=== PATIENT | male | born 1955 | race Caucasian/White ===

== ENCOUNTER 2016-08-04 18:19 | Inpatient (IN) | payer BC ==
[2016-08-04] MEDS ORDERED: Sodium Chloride 0.9% 1,000 ML IV ONE (19:31)
[2016-08-04] MEDS ORDERED: Ketorolac 30 MG/ML SDV IVPUSH ONE (19:33)
[2016-08-04] MEDS ORDERED: Acetaminophen 650 MG Supp RECTAL ONE (19:34)
[2016-08-04] MEDS ORDERED: LORazepam 2 MG/ML MDV IVPUSH ONE (19:34)
--- NOTE | 2016-08-04 19:35 | EDM.PDOC ---
ED HPI GENERAL MEDICAL PROBLEM - General Chief Complaint: Abdominal Pain Stated Complaint: UNK Time Seen by Provider: 08/04/16 19:05 Source of Information: Reports: Patient History Limitations: Reports: No Limitations - History of Present Illness INITIAL COMMENTS - FREE TEXT/NARRATIVE: HISTORY AND PHYSICAL: History of present illness: [61-year-old male with borderline diabetes, obesity, prior abdominal history of bilateral inguinal hernia repairs now presents emergency department complaining of pain around his bellybutton. Patient evolved a dull ache in the area of his bellybutton. He also perceived that he had fevers today. No vomiting or diarrhea. Pain is crampy and intermittent now improved. No chest pain or shortness of breath. No productive cough. Normal bowel and bladder habits.] Review of systems: As per history of present illness and below otherwise all systems reviewed and negative. Past medical history: As per history of present illness and as reviewed below otherwise noncontributory. Surgical history: As per history of present illness and as reviewed below otherwise noncontributory. Social history: No reported history of drug or alcohol abuse. Family history: As per history of present illness and as reviewed below otherwise noncontributory. Physical exam: Patient alert communicative and cooperative however he is mildly anxious. HEENT: Atraumatic, normocephalic, pupils reactive, negative for conjunctival pallor or scleral icterus, mucous membranes moist, throat clear, neck supple, nontender, trachea midline. Lungs: Clear to auscultation, breath sounds equal bilaterally, chest nontender. Heart: S1S2, regular, negative for clicks, rubs, or JVD. Abdomen: Soft, nondistended, mild tenderness in the umbilical distribution. Patient has 2 cm umbilical hernia which was reducible with digital manipulation on M.D. exam. No skin changes erythema warmth or crepitus. No CVA tenderness and otherwise no focal tenderness the abdomen or pelvis. Negative for masses or hepatosplenomegaly. Negative for costovertebral tenderness. Pelvis: Stable nontender. Genitourinary: Deferred. Rectal: Deferred. Extremities: Atraumatic, negative for cords or calf pain. Neurovascular unremarkable. Neuro: Awake, alert, oriented. Cranial nerves II through XII unremarkable. Cerebellum unremarkable. Motor and sensory unremarkable throughout. Exam nonfocal. Diagnostics: [CT abdomen and pelvis pending as well as full laboratory workup] Therapeutics: [Toradol given for pain and Ativan administered for anxiety lysis] Impression: [Abdominal pain Anxiety] Plan: [Patient with abdominal pain. No prior history of chronic abdominal problems. Labs with elevated white blood cell count. CT returns with radiographic evidence of diverticulitis. No abscess or perforation. Case discussed with Dr. Abdi Bonner hospitalist operations research manager who is aware history and findings and agrees with inpatient admission to his service. Blood cultures will be drawn lactic acid pending and Cipro and Flagyl administered. Vital signs stable Definitive disposition and diagnosis as appropriate pending reevaluation and review of above. Umbilical pain Pain Score (Numeric/FACES): 6 - Related Data Allergies Allergy/AdvReac Type Severity Reaction Status Date / Time lisinopril Allergy Cannot Verified 06/28/13 08:44 Remember Home Meds: Home Meds Doxazosin [Doxazosin Mesylate] 4 mg PO DAILY 08/04/16 [History] Omeprazole Magnesium [Prilosec Otc] 20 mg PO DAILY 08/04/16 [History] Tadalafil [Cialis] 5 mg PO DAILY 08/04/16 [History] Valsartan/Hydrochlorothiazide [Diovan Hct 320-25 mg Tablet] 1 each PO DAILY [History] amLODIPine [Norvasc] 5 mg PO DAILY 08/04/16 [History] metFORMIN [Glucophage] 500 mg PO BIDMEALS 08/04/16 [History] Past Medical History Cardiovascular History: Reports: Hypertension Gastrointestinal History: Reports: GERD Endocrine/Metabolic History: Reports: Diabetes, Type II - Past Surgical History Cardiovascular Surgical History: Reports: None Social & Family History - Family History Family Medical History: Noncontributory - Tobacco Use Smoking Status *Q: Never Smoker - Caffeine Use Caffeine Use: Reports: Soda - Recreational Drug Use Recreational Drug Use: No ED ROS GENERAL - Review of Systems Review Of Systems: See Below (History of present illness) ED EXAM, GENERAL - Physical Exam Exam: See Below (History of present illness) Course - Vital Signs Last Recorded V/S: Last Vital Signs Temp 38.3 C H 08/04/16 20:50 Pulse 72 08/04/16 20:50 Resp 20 08/04/16 20:50 BP 115/58 L 08/04/16 20:50 Pulse Ox 93 L 08/04/16 20:50 - Orders/Labs/Meds Orders: Active Orders 24 hr Category Date Time Status Admission Status [Patient Status] [ADT] Stat ADT 08/04/16 21:49 Ordered Abdomen Pelvis w wo Cont [CT] Stat Exams 08/04/16 19:32 Taken CULTURE BLOOD [BC] Stat Lab 08/04/16 21:48 Ordered CULTURE BLOOD [BC] Stat Lab 08/04/16 21:48 Ordered LACTIC ACID,WHOLE BLOOD [BG] Stat Lab 08/04/16 21:49 Ordered Ciprofloxacin in D5W [Cipro in D5W 400 MG/200 ML] 400 Med 08/04/16 21:48 Active mg Premix Bag 1 bag IV NOW Sodium Chloride 0.9% @ 125 MLS/HR (1,000ml) Med 08/04/16 22:00 Ordered Sodium Chloride 0.9% [Normal Saline] 1,000 ml IV ASDIRECTED metroNIDAZOLE/Normal Saline [Flagyl 500 MG in NS 100 ML Med 08/04/16 21:46 Ordered ] 500 mg Premix Bag 1 bag IV ONETIME Blood Culture x2 Reflex Set [OM.PC] Stat Oth 08/04/16 21:48 Ordered Peripheral IV Insertion Adult [OM.PC] Stat Oth 08/04/16 19:31 Ordered Medication Orders Metronidazole 500 mg/ Premix 100 mls @ 100 mls/hr IV ONETIME ONE Stop: 08/04/16 22:45 Sodium Chloride (Normal Saline) 1,000 mls @ 125 mls/hr IV ASDIRECTED KARLA Ciprofloxacin/Dextrose 400 mg/ (Premix) 200 mls @ 200 mls/hr IV NOW STA Stop: 08/04/16 22:47 Labs: Laboratory Tests 08/04/16 08/04/16 08/04/16 Range/Units 19:20 19:55 19:55 WBC 14.30 H (4.0-11.0) K/uL RBC 4.74 (4.50-5.90) M/uL Hgb 14.2 (13.0-17.0) g/dL Hct 41.5 (38.0-50.0) % MCV 87.6 (80.0-98.0) fL MCH 30.0 (27.0-32.0) pg MCHC 34.2 (31.0-37.0) g/dL RDW Std Deviation 45.4 (28.0-62.0) fl RDW Coeff of Teo 14 (11.0-15.0) % Plt Count 169 (150-400) K/uL MPV 9.80 (7.40-12.00) fL Neut % (Auto) 88.9 H (48.0-80.0) % Lymph % (Auto) 6.3 L (16.0-40.0) % [place] % (Auto) 4.4 (0.0-15.0) % Eos % (Auto) 0.2 (0.0-7.0) % Baso % (Auto) 0.2 (0.0-1.5) % Neut # (Auto) 12.7 H (1.4-5.7) K/uL Lymph # (Auto) 0.9 (0.6-2.4) K/uL [place] # (Auto) 0.6 (0.0-0.8) K/uL Eos # (Auto) 0.0 (0.0-0.7) K/uL Baso # (Auto) 0.0 (0.0-0.1) K/uL Nucleated RBC % 0.0 /100WBC Nucleated RBCs # 0 K/uL Sodium 139 (136-146) mmol/L Potassium 3.7 (3.5-5.1) mmol/L Chloride 103 (98-110) mmol/L Carbon Dioxide 24 (21-31) mmol/L BUN 20 (6.0-23.0) mg/dL Creatinine 1.1 (0.6-1.5) mg/dL Est Cr Clr Drug Dosing 73.21 mL/min Estimated GFR (MDRD) > 60.0 ml/min Glucose 106 (60-110) mg/dL Calcium 9.1 (8.8-10.8) mg/dL Total Bilirubin 1.4 (0.1-1.5) mg/dL AST 20 (5-40) IU/L ALT 24 (8-54) IU/L Alkaline Phosphatase 55 (40-150) Total Protein 6.9 (6.0-8.0) g/dL Albumin 4.2 (3.4-4.8) g/dL Globulin 2.7 (2.0-3.5) g/dL Albumin/Globulin Ratio 1.6 (1.3-2.8) Lipase 13 (7-80) U/L Urine Color YELLOW Urine Appearance CLEAR Urine pH 5.5 (5.0-8.0) Ur Specific [place] 1.010 (1.001-1.035) Urine Protein NEGATIVE (NEGATIVE) mg/dL Urine Glucose (UA) NEGATIVE (NEGATIVE) mg/dL Urine Ketones TRACE H (NEGATIVE) mg/dL Urine Occult Blood NEGATIVE (NEGATIVE) Urine Nitrite NEGATIVE (NEGATIVE) Urine Bilirubin NEGATIVE (NEGATIVE) Urine Urobilinogen 0.2 (<2.0) EU/dL Ur Leukocyte Esterase NEGATIVE (NEGATIVE) Urine RBC 0-1 (0-2/HPF) Urine WBC 0-1 (0-5/HPF) Ur Epithelial Cells RARE (NONE-FEW) Urine Bacteria RARE (NEGATIVE) Meds: Medications Generic Name Dose Route Start Last Admin Trade Name Freq PRN Reason Stop Dose Admin Metronidazole 500 mg/ Premix 100 mls @ 100 mls/hr 08/04/16 21:46 IV 08/04/16 22:45 ONETIME ONE Sodium Chloride 1,000 mls @ 125 mls/hr 08/04/16 22:00 Normal Saline IV ASDIRECTED [facility] Ciprofloxacin/Dextrose 400 mg/ 200 mls @ 200 mls/hr 08/04/16 21:48 Premix IV 08/04/16 22:47 NOW STA Discontinued Medications Generic Name Dose Route Start Last Admin Trade Name Freq PRN Reason Stop Dose Admin Acetaminophen 650 mg 08/04/16 19:34 08/04/16 19:50 Tylenol RECTAL 08/04/16 19:35 650 mg NOW ONE Administration Sodium Chloride 1,000 mls @ 999 mls/hr 08/04/16 19:31 08/04/16 19:58 Normal Saline IV 08/04/16 20:31 999 mls/hr .Bolus ONE Administration Ketorolac Tromethamine 30 mg 08/04/16 19:33 08/04/16 20:02 Toradol IVPUSH 08/04/16 19:34 30 mg ONETIME ONE Administration Lorazepam 1 mg 08/04/16 19:34 08/04/16 20:00 Ativan IVPUSH 08/04/16 19:35 1 mg ONETIME ONE Administration Departure - Departure Time of Disposition: 21:54 Disposition: Admitted As Inpatient 64 Condition: Good Clinical Impression: Diverticulitis, Leukocytosis, Fever, SIRS (systemic inflammatory response syndrome), Sepsis - Discharge Information - My Orders Last 24 Hours: My Active Orders 08/04/16 19:31 Peripheral IV Insertion Adult [OM.PC] Stat 08/04/16 19:32 Abdomen Pelvis w wo Cont [CT] Stat 08/04/16 21:46 metroNIDAZOLE/Normal Saline [Flagyl 500 MG in NS 100 ML] 500 mg Premix Bag 1 bag IV ONETIME 08/04/16 21:48 CULTURE BLOOD [BC] Stat CULTURE BLOOD [BC] Stat Ciprofloxacin in D5W [Cipro in D5W 400 MG/200 ML] 400 mg Premix Bag 1 bag IV NOW Blood Culture x2 Reflex Set [OM.PC] Stat 08/04/16 21:49 Admission Status [Patient Status] [ADT] Stat LACTIC ACID,WHOLE BLOOD [BG] Stat 08/04/16 22:00 Sodium Chloride 0.9% @ 125 MLS/HR (1,000ml) Sodium Chloride 0.9% [Normal Saline ] 1,000 ml IV ASDIRECTED - Assessment/Plan Last 24 Hours: My Active Orders 08/04/16 19:31 Peripheral IV Insertion Adult [OM.PC] Stat 08/04/16 19:32 Abdomen Pelvis w wo Cont [CT] Stat 08/04/16 21:46 metroNIDAZOLE/Normal Saline [Flagyl 500 MG in NS 100 ML] 500 mg Premix Bag 1 bag IV ONETIME 08/04/16 21:48 CULTURE BLOOD [BC] Stat CULTURE BLOOD [BC] Stat Ciprofloxacin in D5W [Cipro in D5W 400 MG/200 ML] 400 mg Premix Bag 1 bag IV NOW Blood Culture x2 Reflex Set [OM.PC] Stat 08/04/16 21:49 Admission Status [Patient Status] [ADT] Stat LACTIC ACID,WHOLE BLOOD [BG] Stat 08/04/16 22:00 Sodium Chloride 0.9% @ 125 MLS/HR (1,000ml) Sodium Chloride 0.9% [Normal Saline ] 1,000 ml IV ASDIRECTED
[2016-08-04 20:34] LABS: CHLORIDE,CL 103 mmol/L (98-110); SODIUM,NA 139 mmol/L (136-146)
[2016-08-04] MEDS ORDERED: metroNIDAZOLE/Normal Saline 500 MG in Premix Bag 1 BAG IV ONE ×2 (21:46→23:30)
[2016-08-04] MEDS ORDERED: Ciprofloxacin in D5W 400 MG in Premix Bag 1 BAG IV STA ×2 (21:48)
[2016-08-04] MEDS: Sodium Chloride 0.9% 1,000 ML IV SCH (22:53)
[2016-08-04] MEDS ORDERED: Morphine 2 MG/ML Syringe IVPUSH PRN (23:19)
[2016-08-04] MEDS ORDERED: Ondansetron 4 MG/2 ML SDV IVPUSH PRN (23:19)
--- NOTE | 2016-08-04 23:27 | PCM.HP ---
H&P History of Present Illness - History of Present Illness Initial Comments - Free Text/Narative: 61 yo male who presents with one day history of abdominal pain and fevers. He denies any nausea, vomiting, or blood in stools. He was evaluated in the ED with CT abdomen which reported sigmoid diverticulitis. Umbilical pain Pain Score (Numeric/FACES): 3 - Related Data Allergies/Adverse Reactions: Allergies Allergy/AdvReac Type Severity Reaction Status Date / Time lisinopril Allergy Cannot Verified 06/28/13 08:44 Remember Home Medications: Home Meds Doxazosin [Doxazosin Mesylate] 4 mg PO DAILY 08/04/16 [History] Omeprazole Magnesium [Prilosec Otc] 20 mg PO DAILY 08/04/16 [History] Tadalafil [Cialis] 5 mg PO DAILY 08/04/16 [History] Valsartan/Hydrochlorothiazide [Diovan Hct 320-25 mg Tablet] 1 each PO DAILY [History] amLODIPine [Norvasc] 5 mg PO DAILY 08/04/16 [History] metFORMIN [Glucophage] 500 mg PO BIDMEALS 08/04/16 [History] Past Medical History Cardiovascular History: Reports: Hypertension Gastrointestinal History: Reports: GERD Endocrine/Metabolic History: Reports: Diabetes, Type II - Infectious Disease History Infectious Disease History: Reports: Chicken Pox, Measles, Mumps - Past Surgical History Cardiovascular Surgical History: Reports: None Social & Family History - Family History Family Medical History: Noncontributory - Tobacco Use Smoking Status *Q: Light Tobacco Smoker Years of Tobacco use: 20 Packs/Tins Daily: 1 Used Tobacco, but Quit: No Second Hand Smoke Exposure: Yes - Caffeine Use Caffeine Use: Reports: Coffee - Recreational Drug Use Recreational Drug Use: No H&P Review of Systems - Review of Systems: Review Of Systems: See Below General: Reports: No Symptoms HEENT: Reports: No Symptoms Pulmonary: Reports: No Symptoms Cardiovascular: Reports: No Symptoms Gastrointestinal: Reports: No Symptoms Genitourinary: Reports: No Symptoms Musculoskeletal: Reports: No Symptoms Skin: Reports: No Symptoms Psychiatric: Reports: No Symptoms Neurological: Reports: No Symptoms Hematologic/Lymphatic: Reports: No Symptoms Immunologic: Reports: No Symptoms Exam - Exam Exam: See Below - Vital Signs Vital Signs: Last Vital Signs Temp 37.3 C 08/04/16 22:53 Pulse 65 06/15/17 22:53 Resp 16 08/04/16 22:53 BP 103/59 L 08/04/16 22:53 Pulse Ox 93 L 08/04/16 22:53 Weight: 127.006 kg - Exam General: Alert, Oriented, 4 Lungs: Clear to Auscultation, Normal Respiratory Effort Cardiovascular: Regular Rate, Regular Rhythm Abdomen: Normal Bowel Sounds, Soft Extremities: Normal Inspection, Edema (mild pedal) Skin: Warm, Dry, Intact - Patient Data Result Diagrams: 08/05/16 03:57 08/05/16 03:57 *Q Meaningful Use (ADM) - VTE *Q VTE Criteria *Q: - Stroke *Q Stroke Criteria *Q: - AMI *Q AMI Criteria *Q: Problem List Initiated/Reviewed/Updated: Yes Orders Last 24hrs: Active Orders 24 hr Category Date Time Status Antiembolic Devices [RC] PER UNIT ROUTINE Care 08/04/16 23:22 Ordered Oxygen Therapy [RC] PRN Care 08/04/16 23:19 Ordered Up ad Cortney [RC] ASDIRECTED Care 08/04/16 23:19 Ordered VTE/DVT Education [RC] PER UNIT ROUTINE Care 08/04/16 23:19 Ordered Vital Signs [RC] Q4H Care 08/04/16 23:19 Ordered Nothing per Oral Now Diet [DIET] Diet 08/04/16 Breakfast Ordered BASIC METABOLIC PANEL,BMP [CHEM] AM Lab 08/05/16 05:11 Ordered BASIC METABOLIC PANEL,BMP [CHEM] AM Lab 08/06/16 05:11 Ordered BASIC METABOLIC PANEL,BMP [CHEM] AM Lab 08/07/16 05:11 Ordered CBC WITH AUTO DIFF [HEME] AM Lab 08/05/16 05:11 Ordered CBC WITH AUTO DIFF [HEME] AM Lab 08/06/16 05:11 Ordered CBC WITH AUTO DIFF [HEME] AM Lab 08/07/16 05:11 Ordered CULTURE STOOL + CAMPY+SHIGATOX [RM] Routine Lab 08/04/16 23:23 Uncollected Clostridium Difficile [CDIFF TOX A+B] [OP] Routine Lab 08/04/16 23:23 Uncollected Ciprofloxacin in D5W [Cipro in D5W 400 MG/200 ML] 400 Med 08/05/16 10:00 Ordered mg Premix Bag 1 bag IV Q12H Enoxaparin [Lovenox] Med 08/05/16 09:00 Ordered 40 mg SUBCUT DAILY Morphine Med 08/04/16 23:19 Ordered 2 mg IVPUSH Q2H PRN Ondansetron [Zofran] Med 08/04/16 23:19 Ordered 4 mg IVPUSH Q4H PRN metroNIDAZOLE/Normal Saline [Flagyl 500 MG in NS 100 ML Med 08/05/16 06:00 Ordered ] 500 mg Premix Bag 1 bag IV Q8H Sequential Compression Device [OM.PC] Per Unit Routine Oth 08/04/16 23:20 Ordered Resuscitation Status Routine Resus Stat 08/04/16 23:19 Ordered Medication Orders Sodium Chloride (Normal Saline) 1,000 mls @ 125 mls/hr IV ASDIRECTED KARLA Last Admin: 08/04/16 22:53 Dose: 125 mls/hr Ciprofloxacin/Dextrose 400 mg/ (Premix) 200 mls @ 200 mls/hr IV Q12H KARLA Metronidazole 500 mg/ Premix 100 mls @ 100 mls/hr IV Q8H KARLA Assessment/Plan Comment:: 61 yo male admitted with acute sigmoid diverticulitis. Will treat with Ciprofloxacin, Flagyl, IV fluids and bowel rest. Patient was informed of pulmonary nodules seen on CT scan and need for repeat images in 12 months.
[2016-08-04] MEDS ORDERED: Iopamidol 755 MG/ML 500 ML Multipack Bottle IVPUSH STA (23:43)
[2016-08-05] MEDS ORDERED: Pantoprazole 40 MG in Sodium Chloride 0.9% 10 ML IVPUSH SCH ×2
[2016-08-05] MEDS: Pantoprazole 40 MG in Sodium Chloride 0.9% 10 ML IVPUSH SCH (00:50)
[2016-08-05 04:47] LABS: CHLORIDE,CL 105 mmol/L (98-110); SODIUM,NA 138 mmol/L (136-146)
[2016-08-05] MEDS: metroNIDAZOLE/Normal Saline 500 MG in Premix Bag 1 BAG IV SCH ×2 (07:42→16:34)
[2016-08-05] MEDS: Sodium Chloride 0.9% 1,000 ML IV SCH ×2 (07:44→17:58)
--- NOTE | 2016-08-05 08:42 | PCM.PN ---
- General Info Date of Service: 08/05/16 Admission Dx/Problem (Free Text): Sigmoid diverticulitis Subjective Update: Pain has improved this morning. would like to try a diet today. Eager for discharge Functional Status: Reports: pain controlled, ambulating, urinating - Review of Systems General: Reports: No Symptoms. Denies: Fever Pulmonary: Reports: no symptoms. Denies: shortness of breath Cardiovascular: Reports: No Symptoms. Denies: Chest Pain Gastrointestinal: Reports: Abdominal pain (tenderness only to periumbilical), Flatus. Denies: Nausea, Vomiting Genitourinary: Reports: no symptoms Skin: Reports: no symptoms Neurological: Reports: No Symptoms Psychiatric: Reports: no symptoms - Patient Data Vitals - most recent: Last Vital Signs Temp 98.6 F 08/05/16 04:00 Pulse 60 08/05/16 04:00 Resp 20 08/05/16 04:00 BP 124/68 08/05/16 04:00 Pulse Ox 95 08/05/16 04:00 Weight - most recent: 127.006 kg I&O - last 24 hours: Intake & Output 08/04/16 08/05/16 08/05/16 22:59 06:59 14:59 Intake Total 362 Output Total 400 Balance -38 Lab Results last 24 hrs: Laboratory Results - last 24 hr 08/05/16 08/05/16 Range/Units 03:57 03:57 WBC 14.46 H (4.0-11.0) K/uL RBC 4.31 L (4.50-5.90) M/uL Hgb 12.9 L (13.0-17.0) g/dL Hct 38.1 (38.0-50.0) % MCV 88.4 (80.0-98.0) fL MCH 29.9 (27.0-32.0) pg MCHC 33.9 (31.0-37.0) g/dL RDW Std Deviation 46.4 (28.0-62.0) fl RDW Coeff of Teo 14 (11.0-15.0) % Plt Count 171 (150-400) K/uL MPV 9.90 (7.40-12.00) fL Neut % (Auto) 83.2 H (48.0-80.0) % Lymph % (Auto) 10.2 L (16.0-40.0) % [place] % (Auto) 5.4 (0.0-15.0) % Eos % (Auto) 1.0 (0.0-7.0) % Baso % (Auto) 0.2 (0.0-1.5) % Neut # (Auto) 12.0 H (1.4-5.7) K/uL Lymph # (Auto) 1.5 (0.6-2.4) K/uL [place] # (Auto) 0.8 (0.0-0.8) K/uL Eos # (Auto) 0.1 (0.0-0.7) K/uL Baso # (Auto) 0.0 (0.0-0.1) K/uL Nucleated RBC % 0.0 /100WBC Nucleated RBCs # 0 K/uL Sodium 138 (136-146) mmol/L Potassium 3.5 (3.5-5.1) mmol/L Chloride 105 (98-110) mmol/L Carbon Dioxide 23 (21-31) mmol/L BUN 20 (6.0-23.0) mg/dL Creatinine 1.2 (0.6-1.5) mg/dL Est Cr Clr Drug Dosing 67.11 mL/min Estimated GFR (MDRD) > 60.0 ml/min Glucose 111 H (60-110) mg/dL Calcium 8.1 L (8.8-10.8) mg/dL Micha Results last 24 hrs: Microbiology 08/05/16 07:15 Clostridium difficile Toxin A&B (M) - Final Stool / Feces - Stool, Formed Negative for C.Diff Toxin/AG 08/05/16 07:15 Campylobacter Antigen Assay - Final Stool / Feces - Stool, Formed NEGATIVE CAMPYLOBACTER AG Med Orders - Current: Current Medications Enoxaparin Sodium (Lovenox) 40 mg SUBCUT DAILY [facility] Sodium Chloride (Normal Saline) 1,000 mls @ 125 mls/hr IV ASDIRECTED [facility] Last Admin: 08/05/16 07:44 Dose: 125 mls/hr Ciprofloxacin/Dextrose 400 mg/ (Premix) 200 mls @ 200 mls/hr IV Q12H KARLA Metronidazole 500 mg/ Premix 100 mls @ 100 mls/hr IV Q8H [facility] Last Admin: 08/05/16 07:42 Dose: 100 mls/hr Pantoprazole Sodium 40 mg/ (Sodium Chloride) 10 mls @ 200 mls/hr IVPUSH Q24H KARLA Last Admin: 08/05/16 00:50 Dose: 200 mls/hr Morphine Sulfate (Morphine) 2 mg IVPUSH Q2H PRN PRN Reason: Pain (severe 7-10) Ondansetron HCl (Zofran) 4 mg IVPUSH Q4H PRN PRN Reason: Nausea Discontinued Medications Acetaminophen (Tylenol) 650 mg RECTAL NOW ONE Stop: 08/04/16 19:35 Last Admin: 08/04/16 19:50 Dose: 650 mg Sodium Chloride (Normal Saline) 1,000 mls @ 999 mls/hr IV .Bolus ONE Stop: 08/04/16 20:31 Last Admin: 08/04/16 19:58 Dose: 999 mls/hr Ciprofloxacin/Dextrose 400 mg/ (Premix) 200 mls @ 200 mls/hr IV NOW STA Stop: 08/04/16 22:47 Last Admin: 08/04/16 22:15 Dose: 200 mls/hr Metronidazole 500 mg/ Premix 100 mls @ 100 mls/hr IV ONETIME ONE Stop: 08/05/16 00:29 Last Admin: 08/04/16 23:33 Dose: 100 mls/hr Iopamidol (Isovue Multipack-370 (76%)) 100 ml IVPUSH ONETIME STA Stop: 08/04/16 23:44 Last Admin: 08/04/16 23:44 Dose: 100 ml Ketorolac Tromethamine (Toradol) 30 mg IVPUSH ONETIME ONE Stop: 08/04/16 19:34 Last Admin: 08/04/16 20:02 Dose: 30 mg Lorazepam (Ativan) 1 mg IVPUSH ONETIME ONE Stop: 08/04/16 19:35 Last Admin: 08/04/16 20:00 Dose: 1 mg - Exam General: alert, oriented Neck: supple Lungs: Clear to auscultation, Normal respiratory effort Cardiovascular: Regular Rate, Regular Rhythm Abdomen: bowel sounds present, soft, no distension, tenderness (slight periumbilical) Extremities: no edema, normal pulses Neurological: no new focal deficit Psy/Mental Status: alert, normal affect, normal mood - Problem List & Annotations (1) Diverticulitis SNOMED Code(s): 139625186 Code(s): K57.92 - DVTRCLI OF INTEST, PART UNSP, W/O PERF OR ABSCESS W/O BLEED Status: Acute Current Visit: Yes Qualifiers: Diverticulitis site: large intestine Diverticulitis bleeding: without bleeding Diverticulitis complication: without perforation or abscess Qualified Code(s): K57.32 - Diverticulitis of large intestine without perforation or abscess without bleeding (2) Fever SNOMED Code(s): 381857494 Code(s): R50.9 - FEVER, UNSPECIFIED Status: Acute Current Visit: Yes Qualifiers: Encounter type: initial encounter (3) Leukocytosis SNOMED Code(s): 954313268, 455364315 Code(s): D72.829 - ELEVATED WHITE BLOOD CELL COUNT, UNSPECIFIED Status: Acute Current Visit: Yes - Problem List Review Problem List Initiated/Reviewed/Updated: Yes - Plan Plan:: 61 yo male admitted with acute sigmoid diverticulitis. 1. Acute diverticulitis: Continue Ciprofloxacin, Flagyl, IV fluids. CL diet trial today. Leukocytosis remains 14,000, has not been >24 hours without fever. will monitor. 2. DM type 2: Hold Metformin. Check BS TIDAC, Novolog SSI. 3. HTN: Stable. continue home meds VTE prophylaxis: Lovenox Dispo: Pending improvement
[2016-08-05] MEDS: Enoxaparin 40 MG/0.4 ML Syringe SUBCUT SCH (09:00)
[2016-08-05] MEDS: Ciprofloxacin in D5W 400 MG in Premix Bag 1 BAG IV SCH ×4 (09:00→21:48)
[2016-08-05] MEDS ORDERED: Insulin Aspart 100 Units/ML 3 ML Pen SUBCUT SCH (12:00)
[2016-08-05] MEDS: Omeprazole 20 MG Cap.CR PO SCH (12:08)
[2016-08-05] MEDS: amLODIPine 5 MG Tab PO SCH (12:08)
[2016-08-05] MEDS: Doxazosin 4 MG Tab PO SCH (12:09)
[2016-08-05] MEDS: Hydrochlorothiazide 25 MG Tab PO SCH (12:09)
[2016-08-05] MEDS: Insulin Aspart 100 Units/ML 3 ML Pen SUBCUT SCH ×2 (12:12→17:54)
[2016-08-05] MEDS: Tadalafil [Cialis] 5 MG PO SCH (12:13)
--- NOTE | 2016-08-05 17:32 | CT ---
EXAM DATE: 08/04/16 PATIENT'S AGE: 61 Patient: RYDER ALANIZ Facility: [place], [place] Site . Site : 1955 Study: CT Abdomen/Pelvis [id number] 9:09:51 PM Ordering Physician: Robin Nash Final Report: INDICATION: Abdominal pain TECHNIQUE: CT abdomen and pelvis acquired without and with IV contrast. COMPARISON: None available FINDINGS: Lower chest: A 4-5 millimeter right lower lobe nodular opacity on image 16 and an apparent 4 millimeter perivascular nodular opacity in the left lower lobe on image 7. Liver: A 9 millimeter hepatic cyst. Spleen: Unremarkable. Pancreas: Unremarkable. Gallbladder and bile ducts: Unremarkable. Adrenal glands: Unremarkable. Kidneys: No hydronephrosis or discrete urolithiasis. A left renal cyst and a subcentimeter right renal low-density lesion, statistically representing a cyst as well. Mild perirenal changes, nonspecific. GI tract: Gastric wall thickening could be related to under distension. No mechanical bowel obstruction. A normal appendix. Left colonic diverticulosis with stranding adjacent to the proximal sigmoid colon compatible with diverticulitis. Vascular structures: Atherosclerotic changes. Lymph nodes: Unremarkable. Miscellaneous: No free fluid or free air. Fat containing umbilical and inguinal hernias. Pelvic Organs: A focus of fat along the anterior bladder wall is probably related to prior inflammation. Grossly unremarkable prostate. Bones: Bilateral L5 spondylolysis with grade 1 anterolisthesis of L5 on S1. Degenerative changes in the spine. IMPRESSION: Sigmoid diverticulitis. Gastric wall thickening could be related to under distention, however followup evaluation of the stomach is recommended. Small pulmonary nodules. If there are risk factors, a 12 month followup examination could be obtained. Other findings as above. Dictated by Berhane Sharma MD @ 08/04/2016 9:30:28 PM Dictated by: Berhane Sharma MD @ 08/04/2016 21:30:30 (Electronic Signature) Report Signed by Proxy. [facility]ENTER[facility]rs[facility]la
[2016-08-05] MEDS ORDERED: Acetaminophen 325 MG Tab PO PRN (19:33)
[2016-08-06] MEDS: Pantoprazole 40 MG in Sodium Chloride 0.9% 10 ML IVPUSH SCH (00:57)
[2016-08-06] MEDS: metroNIDAZOLE/Normal Saline 500 MG in Premix Bag 1 BAG IV SCH ×2 (01:00→07:59)
[2016-08-06] MEDS: Sodium Chloride 0.9% 1,000 ML IV SCH (04:18)
[2016-08-06 06:27] LABS: CHLORIDE,CL 107 mmol/L (98-110); SODIUM,NA 139 mmol/L (136-146)
[2016-08-06] MEDS: Insulin Aspart 100 Units/ML 3 ML Pen SUBCUT SCH ×2 (06:31→11:24)
[2016-08-06] MEDS: Omeprazole 20 MG Cap.CR PO SCH (06:39)
[2016-08-06] MEDS: amLODIPine 5 MG Tab PO SCH (08:03)
[2016-08-06] MEDS: Doxazosin 4 MG Tab PO SCH (08:03)
[2016-08-06] MEDS: Hydrochlorothiazide 25 MG Tab PO SCH (08:03)
[2016-08-06 08:04] VITALS: BP 102/69
[2016-08-06] MEDS: Enoxaparin 40 MG/0.4 ML Syringe SUBCUT SCH (08:04)
[2016-08-06] MEDS: Tadalafil [Cialis] 5 MG PO SCH (09:43)
[2016-08-06] MEDS: Ciprofloxacin in D5W 400 MG in Premix Bag 1 BAG IV SCH ×2 (11:22)
--- NOTE | 2016-08-06 11:57 | PCM.DCSUM1 ---
Discharge Summary - Discharge Data Discharge Date: 08/06/16 Discharge Disposition: Home, Self-Care 01 Condition: Good - Patient Summary/Data Hospital Course: Admission Diagnosis Acute sigmoid diverticultis Hospital course: 61 yo male who presents with one day history of abdominal pain and fevers. He denies any nausea, vomiting, or blood in stools. He was evaluated in the ED with CT abdomen which reported sigmoid diverticulitis. White count was elevated at 14,000 on admission. He was treated with IV Ciprofloxacin, Flagyl and bowel rest. He had resolution of his abdominal pain and leukocytosis. Today he is requesting discharge home. He was instructed to keep a liquid diet fo 24 hours and htn advance diet as tolerated at home. He is to follow up with with Dr. Badillo his PCP and Dr. Laurent regarding colonoscopy. He was discharged home to complete two weeks of antibiotics with Ciproflxacin and Flagyl. - Patient Instructions Diet: Clear Liquid Diet - Discharge Plan Prescriptions/Med Rec: Ciprofloxacin [Ciprofloxacin HCl] 500 mg PO BID #26 tablet metroNIDAZOLE [Flagyl] 500 mg PO Q8H #39 tablet Home Medications: Home Meds Doxazosin [Cardura] 4 mg PO DAILY 08/04/16 [History] Omeprazole Magnesium [Prilosec Otc] 20 mg PO DAILY 08/04/16 [History] Tadalafil [Cialis] 5 mg PO DAILY 08/04/16 [History] Valsartan/Hydrochlorothiazide [Diovan Hct 320-25 mg Tablet] 1 each PO DAILY [History] amLODIPine [Norvasc] 5 mg PO DAILY 08/04/16 [History] metFORMIN [Glucophage] 500 mg PO BIDMEALS 08/04/16 [History] Ciprofloxacin [Ciprofloxacin HCl] 500 mg PO BID #26 tablet 08/06/16 [Rx] metroNIDAZOLE [Flagyl] 500 mg PO Q8H #39 tablet 08/06/16 [Rx] Patient Handouts: Diverticulitis, [id number], Ciprofloxacin tablets, Metronidazole tablets or capsules Referrals: David Laurent MD [Physician] - 08/24/16 9:30 am Narendra Badillo MD [Primary Care Provider] - 08/18/16 12:00 pm - Patient Data Vitals - Most Recent: Last Vital Signs Temp 37.2 C 08/06/16 09:00 Pulse 70 08/06/16 09:00 Resp 20 08/06/16 09:00 BP 102/69 08/06/16 09:00 Pulse Ox 94 L 08/06/16 09:00 Weight - Most Recent: 127.006 kg I&O - Last 24 hours: Intake & Output 08/05/16 08/06/16 08/06/16 22:59 06:59 14:59 Intake Total 1840 990 800 Output Total 650 1400 900 Balance 1190 -410 -100 Lab Results - Last 24 hrs: Laboratory Results - last 24 hr 08/06/16 08/06/16 08/06/16 Range/Units 05:42 05:42 06:03 WBC 10.91 (4.0-11.0) K/uL RBC 4.15 L (4.50-5.90) M/uL Hgb 12.4 L (13.0-17.0) g/dL Hct 36.6 L (38.0-50.0) % MCV 88.2 (80.0-98.0) fL MCH 29.9 (27.0-32.0) pg MCHC 33.9 (31.0-37.0) g/dL RDW Std Deviation 45.5 (28.0-62.0) fl RDW Coeff of Teo 14 (11.0-15.0) % Plt Count 151 (150-400) K/uL MPV 9.70 (7.40-12.00) fL Add Manual Diff YES Neutrophils % (Manual) 88 H (48.0-80.0) % Band Neutrophils % 2 % Lymphocytes % (Manual) 6 L (16.0-40.0) % Monocytes % (Manual) 3 (0.0-15.0) % Eosinophils % (Manual) 1 (0.0-7.0) % Nucleated RBC % 0.0 /100WBC Absolute Seg Neuts 9.6 Band Neutrophils # 0.2 Lymphocytes # (Manual) 0.7 Monocytes # (Manual) 0.3 Eosinophils # (Manual) 0.1 Nucleated RBCs # 0 K/uL Sodium 139 (136-146) mmol/L Potassium 3.2 L (3.5-5.1) mmol/L Chloride 107 (98-110) mmol/L Carbon Dioxide 21 (21-31) mmol/L BUN 11 (6.0-23.0) mg/dL Creatinine 0.9 (0.6-1.5) mg/dL Est Cr Clr Drug Dosing 89.48 mL/min Estimated GFR (MDRD) > 60.0 ml/min Glucose 115 H (60-110) mg/dL POC Glucose 115 H (60-110) mg/dL Calcium 8.0 L (8.8-10.8) mg/dL LEXI Results - Last 24 hrs: Microbiology 08/05/16 07:15 Campylobacter Antigen Assay - Final Stool / Feces - Stool, Formed NEGATIVE CAMPYLOBACTER AG - Final NEGATIVE FOR SHIGA TOXIN 1 - Final NEGATIVE FOR SHIGA TOXIN 2 08/05/16 07:15 Clostridium difficile Toxin A&B (M) - Final Stool / Feces - Stool, Formed Negative for C.Diff Toxin/AG Med Orders - Current: Current Medications Acetaminophen (Tylenol) 650 mg PO Q6H PRN PRN Reason: pain Last Admin: 08/05/16 20:16 Dose: 650 mg Amlodipine Besylate (Norvasc) 5 mg PO DAILY [facility] Last Admin: 08/06/16 08:03 Dose: 5 mg Doxazosin Mesylate (Cardura) 4 mg PO DAILY [facility] Last Admin: 08/06/16 08:03 Dose: 4 mg Enoxaparin Sodium (Lovenox) 40 mg SUBCUT DAILY [facility] Last Admin: 08/06/16 08:04 Dose: 40 mg Hydrochlorothiazide (Hydrochlorothiazide) 25 mg PO DAILY [facility] Last Admin: 08/06/16 08:03 Dose: 25 mg Sodium Chloride (Normal Saline) 1,000 mls @ 125 mls/hr IV ASDIRECTED [facility] Last Admin: 08/06/16 04:18 Dose: 125 mls/hr Ciprofloxacin/Dextrose 400 mg/ (Premix) 200 mls @ 200 mls/hr IV Q12H [facility] Last Admin: 08/06/16 11:22 Dose: Not Given Metronidazole 500 mg/ Premix 100 mls @ 100 mls/hr IV Q8H [facility] Last Admin: 08/06/16 07:59 Dose: 100 mls/hr Pantoprazole Sodium 40 mg/ (Sodium Chloride) 10 mls @ 200 mls/hr IVPUSH Q24H [facility] Last Admin: 08/06/16 00:57 Dose: 200 mls/hr Insulin Aspart (Novolog) 0 unit SUBCUT TIDAC [facility] PRN Reason: Protocol Last Admin: 08/06/16 11:24 Dose: Not Given Morphine Sulfate (Morphine) 2 mg IVPUSH Q2H PRN PRN Reason: Pain (severe 7-10) Omeprazole (Omeprazole) 20 mg PO ACBREAKFAST [facility] Last Admin: 08/06/16 06:39 Dose: 20 mg Ondansetron HCl (Zofran) 4 mg IVPUSH Q4H PRN PRN Reason: Nausea Tadalafil [Cialis] 5 (Mg) 1 each PO DAILY [facility] Last Admin: 08/06/16 09:43 Dose: Not Given Valsartan (Diovan) 320 mg PO DAILY [facility] Last Admin: 08/06/16 08:01 Dose: 320 mg Discontinued Medications Acetaminophen (Tylenol) 650 mg RECTAL NOW ONE Stop: 08/04/16 19:35 Last Admin: 08/04/16 19:50 Dose: 650 mg Sodium Chloride (Normal Saline) 1,000 mls @ 999 mls/hr IV .Bolus ONE Stop: 08/04/16 20:31 Last Admin: 08/04/16 19:58 Dose: 999 mls/hr Ciprofloxacin/Dextrose 400 mg/ (Premix) 200 mls @ 200 mls/hr IV NOW STA Stop: 08/04/16 22:47 Last Admin: 08/04/16 22:15 Dose: 200 mls/hr Metronidazole 500 mg/ Premix 100 mls @ 100 mls/hr IV ONETIME ONE Stop: 08/05/16 00:29 Last Admin: 08/04/16 23:33 Dose: 100 mls/hr Insulin Aspart (Novolog) 0 unit SUBCUT Q6H [facility] PRN Reason: Protocol Iopamidol (Isovue Multipack-370 (76%)) 100 ml IVPUSH ONETIME STA Stop: 08/04/16 23:44 Last Admin: 08/04/16 23:44 Dose: 100 ml Ketorolac Tromethamine (Toradol) 30 mg IVPUSH ONETIME ONE Stop: 08/04/16 19:34 Last Admin: 08/04/16 20:02 Dose: 30 mg Lorazepam (Ativan) 1 mg IVPUSH ONETIME ONE Stop: 08/04/16 19:35 Last Admin: 08/04/16 20:00 Dose: 1 mg *Q Meaningful Use (DIS) - VTE *Q VTE Criteria *Q: - Stroke *Q Stroke Criteria *Q: - AMI *Q AMI Criteria *Q:
== END 2016-08-06 11:55 | disposition home or self-care (01) | DRG 244 ==
LOC: MW.ED 18:19 → MW.MS 22:18
PROVIDERS: ADMIT Internal Medicine; ATTEND Internal Medicine
DX: K57.32 Diverticulitis of large intestine without perforation or abscess without bleeding (principal); I10 Essential (primary) hypertension; K21.9 Gastro-esophageal reflux disease without esophagitis; E11.9 Type 2 diabetes mellitus without complications; F17.210 Nicotine dependence, cigarettes, uncomplicated; Z79.84 Long term (current) use of oral hypoglycemic drugs
CPT/HCPCS: 36415; 74178; 74178-26; 80048; 80053; 81001; 82962; 83605; 83690; 85025; 87040; 87046; 87324; 87899; 96361; 96374; 96375; 99284-25; 99285; A9270-GY; C9113; J0744; J1650; J1885; J2060; J7040; Q9967

== ENCOUNTER 2016-09-19 07:28 | Day surgery (SDC) | payer BC ==
[~2016-09-19 07:28] MED LIST: Lactated Ringers 1,000 ML IV SCH
--- NOTE | 2016-09-19 07:58 | PCM.PREANE ---
Preanesthetic Assessment - Anesthesia/Transfusion/Family Hx Anesthesia History: Prior Anesthesia Without Reaction Family History of Anesthesia Reaction: No Transfusion History: No Prior Transfusion(s) Intubation History: Unknown - Review of Systems General: No Symptoms Pulmonary: No Symptoms Cardiovascular: No Symptoms Gastrointestinal: No Symptoms, Other (diverticulitis (completed antibiotic therapy)) Neurological: No Symptoms Other: Reports: None - Physical Assessment Height: 1.8 m Weight: 125.645 kg ASA Class: 3 Mental Status: Alert & Oriented x3 Airway Class: Mallampati = 3 Dentition: Reports: Normal Dentition Thyro-Mental Finger Breadths: 3 Mouth Opening Finger Breadths: 3 ROM/Head Extension: Full Lungs: Clear to Auscultation, Normal Respiratory Effort Cardiovascular: Regular Rate, Regular Rhythm - Allergies Allergies/Adverse Reactions: Allergies Allergy/AdvReac Type Severity Reaction Status Date / Time lisinopril Allergy Cannot Verified 09/15/16 12:23 Remember - Blood Blood Available: No - Anesthesia Plan Pre-Op Medication Ordered: None - Acknowledgements Anesthesia Type Planned: MAC Pt an Appropriate Candidate for the Planned Anesthesia: Yes Alternatives and Risks of Anesthesia Discussed w Pt/Guardian: Yes Pt/Guardian Understands and Agrees with Anesthesia Plan: Yes PreAnesthesia Questionnaire HEENT History: Reports: None Cardiovascular History: Reports: High Cholesterol, Hypertension Respiratory History: Reports: Sleep Apnea Other Respiratory History: uses CPAP Gastrointestinal History: Reports: Other (See Below) (diverticulitis, h/o gastric polyps) Genitourinary History: Reports: None Musculoskeletal History: Reports: Fracture Other Musculoskeletal History: hx of fx wrist Neurological History: Reports: None Psychiatric History: Reports: None Endocrine/Metabolic History: Reports: Obesity/BMI 30+, Other (See Below) (takes metfomin 2 tbl daily (denies DM ?)) Hematologic History: Reports: Other (See Below) (h/o anemia) Immunologic History: Reports: None Oncologic (Cancer) History: Reports: None Dermatologic History: Reports: None - Infectious Disease History Infectious Disease History: Reports: Chicken Pox, Measles, Mumps - Past Surgical History Head Surgeries/Procedures: Reports: None GI Surgical History: Reports: Colonoscopy, EGD, Hernia, Inguinal Male Surgical History: Reports: None Musculoskeletal Surgical History: Reports: Knee Replacement, Other (See Below) Other Musculoskeletal Surgeries/Procedures:: hx of bilateral TKA, hx of bunionectomy - SUBSTANCE USE Smoking Status *Q: Current Some Day Smoker Tobacco Use Within Last Twelve Months: Cigars Second Hand Smoke Exposure: Yes Recreational Drug Use History: No - HOME MEDS Home Medications: Home Meds Doxazosin [Cardura] 4 mg PO DAILY 08/04/16 [History] Omeprazole Magnesium [Prilosec Otc] 20 mg PO DAILY 08/04/16 [History] Tadalafil [Cialis] 5 mg PO ASDIRECTED PRN 08/04/16 [History] Valsartan/Hydrochlorothiazide [Diovan Hct 320-25 mg Tablet] 1 each PO DAILY [History] amLODIPine [Norvasc] 5 mg PO DAILY 08/04/16 [History] metFORMIN [Glucophage] 500 mg PO BIDMEALS 08/04/16 [History] Aspirin [Adult Low Dose Aspirin EC] 81 mg PO DAILY 09/15/16 [History] - CURRENT (IN HOUSE) MEDS Current Meds: Current Medications Lactated Ringer's (Ringers, Lactated) 1,000 mls @ 125 mls/hr IV ASDIRECTED KARLA
[2016-09-19] MEDS ORDERED: Midazolam 1 MG/ML 2 ML SDV ONE (08:10)
[2016-09-19] MEDS ORDERED: Propofol 200 MG/20 ML SDV ONE ×2 (08:10→08:19)
--- NOTE | 2016-09-19 09:42 | PCM.OPNOTE ---
- General Post-Op/Procedure Note Date of Surgery/Procedure: 09/19/16 Operative Procedure(s): Esophagogastroduodenoscopy with biopsies of gastric antrum and gastric polyps. Colonoscopy with cold rectal polypectomy. Pre Op Diagnosis: Gastric wall thickening on CT scan. Gastric polyps. Recent episode of diverticulitis. Post-Op Diagnosis: Mild to moderate gastritis. Gastric polyps. Pancolonic diverticulosis. Rectal polyp. Anesthesia Technique: MAC (ASA III) Primary Surgeon: David Laurent Condition: Good Free Text/Narrative:: Dictation [id number] CPT CODE [id number]
[2016-09-19] MEDS ORDERED: Lactated Ringers 1,000 ML IV SCH (09:45)
[2016-09-19 10:15] VITALS: BP 129/77
--- NOTE | 2016-09-19 10:26 | OR ---
SURGEON: David Laurent M.D. DATE OF PROCEDURE: 09/19/2016 OPERATION PERFORMED: Colonoscopy with cold rectal polypectomy. ANESTHESIA: MAC. ASA CLASSIFICATION: III. PREOPERATIVE DIAGNOSIS: Recent episode of diverticulitis. POSTOPERATIVE DIAGNOSES: 1. Pancolonic diverticulosis. 2. Rectal polyp. DESCRIPTION OF PROCEDURE: With the patient having completed esophagogastroduodenoscopy, he was now positioned in the left lateral decubitus position. The colonoscope was inserted into the rectum and advanced with moderate difficulty to the cecum. The colonoscope was retroflexed in the cecum to visualize the ascending colon from below. The cecum was identified by internal landmarks and external pressure. The cecum showed no acute inflammatory changes or ulcerations. The patient does have small diverticula noted beginning in the ascending colon. The cecum, ascending colon, hepatic flexure, transverse colon, splenic flexure, descending colon, and sigmoid colon were very well visualized. No tumors or polyps were encountered. Multiple diverticula were noted. There were no acute inflammatory changes. There was no evidence of inflammatory bowel disease. The colonoscope was withdrawn to the rectum. One small polyp was identified and removed with the cold biopsy forceps. The colonoscope was retroflexed in the rectum to visualize the anal orifice from above. No tumors were seen. The polyp was previously identified. There were no acute hemorrhoidal changes. The colonoscope was then straightened, the rectum aspirated, and the colonoscope removed. The patient tolerated the procedure well and was taken to recovery room in stable condition. GORDON DALTON /[id number]
--- NOTE | 2016-09-19 11:14 | OR ---
SURGEON: David Laurent M.D. DATE OF PROCEDURE: 09/19/2016 OPERATION PERFORMED: Esophagogastroduodenoscopy with biopsies. ANESTHESIA: MAC. ASA CLASSIFICATION: III. PREOPERATIVE DIAGNOSES: 1. Abnormal gastric thickening. 2. History of gastric polyps. POSTOPERATIVE DIAGNOSES: 1. [id number] gastritis. 2. Gastric polyps. DESCRIPTION OF PROCEDURE: The patient was taken to the endoscopy room and positioned on the endoscopy table in the supine position. Time-out was called for appropriate identification of patient and procedure. Monitored anesthesia care was provided. The bite block was placed between the patient's teeth. The gastroscope was inserted into the mouth and advanced without difficulty through the esophagus and stomach and into the duodenum, where examination was carried out in a retrograde fashion. The duodenum showed no acute inflammatory changes or ulcerations. The stomach does show [id number] gastritis. Antral biopsies were obtained to look for the presence of Helicobacter pylori. The gastroscope was retroflexed to visualize proximal stomach. No significant hiatal hernia was noted. No tumors were noted. The stomach was quite distensible. Multiple gastric polyps were identified and again biopsies of several of these polyps were obtained. The gastroscope was slowly withdrawn aspirating the stomach wall carefully visualizing both greater and lesser curvatures. The GE junction was well defined and showed no acute inflammatory changes or ulcerations. The esophagus demonstrated good contractility. No mid or proximal lesions were identified. The vocal cords were visualized as the scope was withdrawn and noted to move symmetrically. The gastroscope was then removed with the patient having tolerated this portion of the procedure well. Following colonoscopy, he was taken to recovery room in stable condition. GORDON DALTON /[id number]
== END 2016-09-19 10:10 | disposition home or self-care (01) ==
LOC: MW.SDS 07:28
PROVIDERS: ATTEND Surgery
PROC: 0DB68ZX Excision of Stomach, Via Natural or Artificial Opening Endoscopic, Diagnostic (ICD-10-PCS; principal; 2016-09-19)
PROC: 0DBP8ZZ Excision of Rectum, Via Natural or Artificial Opening Endoscopic (ICD-10-PCS; 2016-09-19)
DX: K29.50 Unspecified chronic gastritis without bleeding (principal); K31.7 Polyp of stomach and duodenum; K62.1 Rectal polyp; K57.30 Diverticulosis of large intestine without perforation or abscess without bleeding; N40.1 Benign prostatic hyperplasia with lower urinary tract symptoms; R33.8 Other retention of urine; E78.5 Hyperlipidemia, unspecified; N52.9 Male erectile dysfunction, unspecified; H91.90 Unspecified hearing loss, unspecified ear; I10 Essential (primary) hypertension; E66.9 Obesity, unspecified; G47.33 Obstructive sleep apnea (adult) (pediatric); F17.290 Nicotine dependence, other tobacco product, uncomplicated; E78.00 Pure hypercholesterolemia, unspecified; R73.09 Other abnormal glucose; Z87.19 Personal history of other diseases of the digestive system; Z88.8 Allergy status to other drugs, medicaments and biological substances; Z99.89 Dependence on other enabling machines and devices; Z79.82 Long term (current) use of aspirin; Z79.84 Long term (current) use of oral hypoglycemic drugs; Z79.899 Other long term (current) drug therapy; Z96.653 Presence of artificial knee joint, bilateral; Z98.890 Other specified postprocedural states; Z68.38 Body mass index [BMI] 38.0-38.9, adult
CPT/HCPCS: 43239; 45380; J2250; J7120; 00740; 88305; 88312; J2704

== ENCOUNTER 2018-07-17 11:14 | Day surgery (SDC) | payer BC ==
[2018-07-17] MEDS ORDERED: Iopamidol 200-M 10 ML vial ITHECAL ONE (11:33)
[2018-07-17] MEDS ORDERED: Lidocaine 2% 5 ML SDV ONE (11:33)
[2018-07-17] MEDS ORDERED: Ropivacaine 0.5% 5 MG/ML 30 ML SDV ONE (11:33)
[2018-07-17] MEDS ORDERED: Betamethasone Acetate/Betamethasone Sod Phosphate 30 MG/5 ML MDV ONE (11:33)
--- NOTE | 2018-07-17 20:00 | OR ---
SURGEON: Elly Sherwood D.O. DATE OF PROCEDURE: 07/17/2018 OPERATING ROOM STAFF PRESENT: 1. Yesica Belcher RN. 2. Consuelo Whaley. 3. Jayce Matute. PREOPERATIVE DIAGNOSES: 1. Lumbar degenerative disk disease, L3-L4 and L4-L5. 2. L4/L5 spondylolisthesis. 3. Lumbar spinal stenosis. 4. Transitional vertebrae. 5. Lumbar radiculopathy. POSTOPERATIVE DIAGNOSES: 1. Lumbar degenerative disk disease, L3-L4 and L4-L5. 2. L4/L5 spondylolisthesis. 3. Lumbar spinal stenosis. 4. Transitional vertebrae. 5. Lumbar radiculopathy. PROCEDURES PERFORMED: 1. Caudal epidural steroid injection. 2. Fluoroscopic guidance for needle placement. 3. Local with oral Valium for sedation. PREOPERATIVE PAIN: 5/10 to 9/10. POSTOPERATIVE PAIN: 0/10. FOLLOWUP: In the Pain Clinic in 3 weeks. SCREENING QUESTIONS: The patient answered "no" to all of the following questions: 1. Are you allergic to latex? 2. Do you have a bleeding disorder? 3. Do you have any current local or systemic infections? 4. Are you taking any anti-inflammatories or blood thinners? 5. Do you have any joint replacements, heart valve replacements, or a pacemaker? DESCRIPTION OF PROCEDURE: The patient had the procedure thoroughly explained including all possible risks, benefits and alternatives. Consent was signed in my clinic indicating understanding and willingness to proceed. The patient presented to [facility] and was escorted to the dressing room to disrobe and change into a hospital gown. Preoperative vital signs were taken and stable. The patient reported that Valium was taken prior to the procedure. The patient was brought back to the procedure room and placed in the prone position on the procedure room table. A pillow was placed under the hips in order to flatten the lumbar lordosis. The back was prepped with ChloraPrep and sterilely draped. All personnel in the operating room were dressed in appropriate attire including surgical scrubs, head and shoe covers. This was to ensure sterility while in the treatment room. During the time fluoroscopy was in use, all personnel in the operating room wore lead william with thyroid collars. Sterile technique was used throughout the procedure. The patient was awake and conversant throughout the procedure. There was no evidence of infection at the site of needle insertion. Skeletal landmarks were identified under fluoroscopy for the caudal epidural. Skin was anesthetized with 2% lidocaine with a sterile 27-gauge 1.5 inch needle. Then a 20-gauge Tuohy epidural needle was placed in the epidural space with loss of resistance technique under fluoroscopic guidance. No heme, cerebrospinal fluid, or paresthesias were noted. Isovue-200 contrast dye was injected in 0.2 cubic centimeter increments and seen to outline the epidural space in both AP and lateral views. There was no intravascular flow pattern observed under live fluoroscopy. Then 12 milligrams of Celestone was slowly injected after negative aspiration. The patient tolerated the procedure well. Vital signs were stable during and after the procedure. The staff escorted the patient to the recovery area and the patient was released in stable condition after a brief stay in the recovery room monitored by the nurse. The patient was given both oral and written discharge and follow up instructions with recommendation to follow up given for 2-3 weeks. The patient voiced understanding including understanding of those signs and symptoms that would require emergency care. The patient knows how to contact the office if there are any additional problems or questions in the meantime. DARIEN / SHA /[id number] RANDI
== END 2018-07-17 13:40 ==
LOC: MW.SDS 11:14
PROVIDERS: ATTEND Anesthesiology
DX: M51.17 Intervertebral disc disorders with radiculopathy, lumbosacral region (principal); M43.16 Spondylolisthesis, lumbar region; M48.061 Spinal stenosis, lumbar region without neurogenic claudication; M12.88 Other specific arthropathies, not elsewhere classified, other specified site; M51.16 Intervertebral disc disorders with radiculopathy, lumbar region; I10 Essential (primary) hypertension; F17.200 Nicotine dependence, unspecified, uncomplicated; G47.33 Obstructive sleep apnea (adult) (pediatric); E66.01 Morbid (severe) obesity due to excess calories; Z68.41 Body mass index [BMI] 40.0-44.9, adult; Z88.8 Allergy status to other drugs, medicaments and biological substances; Z79.82 Long term (current) use of aspirin; Z79.899 Other long term (current) drug therapy
CPT/HCPCS: 62323; J0702; J2795; Q9966; J2001

== ENCOUNTER 2018-09-11 11:06 | Day surgery (SDC) | payer MEDICARE, BC ==
[~2018-09-11 11:06] MED LIST changes: +Betamethasone Acetate/Betamethasone Sod Phosphate 30 MG/5 ML MDV EPIDUR ONE; +Iopamidol 200-M 10 ML vial ITHECAL ONE; -Lactated Ringers 1,000 ML IV SCH; +Ropivacaine 0.5% 5 MG/ML 30 ML SDV INJECT ONE
[2018-09-11] MEDS ORDERED: Lidocaine 2% 5 ML SDV ONE (11:35)
--- NOTE | 2018-09-11 17:52 | OR ---
SURGEON: Elly Sherwood D.O. DATE OF PROCEDURE: 09/11/2018 PRIMARY SURGEON: Elly Sherwood D.O. ASSISTANTS: OR Staff: 1. Liliam Rico RN. 2. Consuelo Whaley RN. 3. RT Ranjana. WOUND CLASS: I. PREOPERATIVE DIAGNOSES: 1. Lumbar spinal stenosis. 2. Lumbar radiculopathy. 3. Lumbar degenerative disk disease, L4-5 and L5-S1. POSTOPERATIVE DIAGNOSES: 1. Lumbar spinal stenosis. 2. Lumbar radiculopathy. 3. Lumbar degenerative disk disease, L4-5 and L5-S1. PROCEDURE PERFORMED: 1. Caudal epidural steroid injection. 2. Fluoroscopic guidance for needle placement. 3. Local with oral Valium for sedation. SCREENING QUESTIONS: The patient answered "no" to all of the following questions: 1. Are you allergic to latex? 2. Do you have a bleeding disorder? 3. Do you have any current local or systemic infections? 4. Are you taking any anti-inflammatories or blood thinners? 5. Do you have any joint replacements, heart valve replacements, or a pacemaker? DESCRIPTION OF PROCEDURE: The patient had the procedure thoroughly explained including all possible risks, benefits and alternatives. Consent was signed in my clinic indicating understanding and willingness to proceed. The patient presented to [facility] and was escorted to the dressing room to disrobe and change into a hospital gown. Preoperative vital signs were taken and stable. The patient reported that Valium was taken prior to the procedure. The patient was brought back to the procedure room and placed in the prone position on the procedure room table. A pillow was placed under the hips in order to flatten the lumbar lordosis. The back was prepped with ChloraPrep and sterilely draped. All personnel in the operating room were dressed in appropriate attire including surgical scrubs, head and shoe covers. This was to ensure sterility while in the treatment room. During the time fluoroscopy was in use, all personnel in the operating room wore lead william with thyroid collars. Sterile technique was used throughout the procedure. The patient was awake and conversant throughout the procedure. There was no evidence of infection at the site of needle insertion. Skeletal landmarks were identified under fluoroscopy for the caudal epidural. Skin was anesthetized with 2% lidocaine with a sterile 27-gauge 1.5 inch needle. Then a 20-gauge Tuohy epidural needle was placed in the epidural space with loss of resistance technique under fluoroscopic guidance. No heme, cerebrospinal fluid, or paresthesias were noted. Isovue-200 contrast dye was injected in 0.2 cubic centimeter increments and seen to outline the epidural space in both AP and lateral views. There was no intravascular flow pattern observed under live fluoroscopy. Then 12 milligrams of Celestone was slowly injected after negative aspiration. The patient tolerated the procedure well. Vital signs were stable during and after the procedure. The staff escorted the patient to the recovery area and the patient was released in stable condition after a brief stay in the recovery room monitored by the nurse. The patient was given both oral and written discharge and follow up instructions with recommendation to follow up given for 2-3 weeks. The patient voiced understanding including understanding of those signs and symptoms that would require emergency care. The patient knows how to contact the office if there are any additional problems or questions in the meantime. PREOPERATIVE PAIN: 5/10. POSTOPERATIVE PAIN: 0/10. PLAN: Followup in the Pain Clinic in 3 weeks. DARIEN / SHA /[id number] RANDI
== END 2018-09-11 12:57 ==
LOC: MW.SDS 11:06
PROVIDERS: ATTEND Anesthesiology
DX: G89.29 Other chronic pain (principal); M54.5 Low back pain; M51.16 Intervertebral disc disorders with radiculopathy, lumbar region; M48.061 Spinal stenosis, lumbar region without neurogenic claudication; M51.17 Intervertebral disc disorders with radiculopathy, lumbosacral region; M40.46 Postural lordosis, lumbar region; M12.88 Other specific arthropathies, not elsewhere classified, other specified site; M43.16 Spondylolisthesis, lumbar region; M47.27 Other spondylosis with radiculopathy, lumbosacral region; I10 Essential (primary) hypertension; E78.5 Hyperlipidemia, unspecified; E66.01 Morbid (severe) obesity due to excess calories; F17.290 Nicotine dependence, other tobacco product, uncomplicated; G47.33 Obstructive sleep apnea (adult) (pediatric); Z88.8 Allergy status to other drugs, medicaments and biological substances; Z79.82 Long term (current) use of aspirin; Z79.84 Long term (current) use of oral hypoglycemic drugs; Z79.899 Other long term (current) drug therapy
CPT/HCPCS: 62323; J2001

== ENCOUNTER 2019-01-10 11:32 | Day surgery (SDC) | payer MEDICARE, OTHER ==
[~2019-01-10 11:32] MED LIST changes: +Lidocaine 2% 5 ML SDV INJECT ONE
--- NOTE | 2019-01-10 19:02 | OR ---
SURGEON: Elly Sherwood D.O. DATE OF PROCEDURE: 01/10/2019 PRIMARY SURGEON: Elly Sherwood D.O. ASSISTANTS: OR staff present: 1. Jorden Montenegro RN. 2. Consuelo Whaley RN. 3. Jayce Guerrero RT. WOUND CLASS: I. PREOPERATIVE DIAGNOSES: 1. Lumbar degenerative disk disease, L3-4, L4-5, and L5-S1. 2. Lumbar spondylosis. 3. Lumbar spinal stenosis. 4. Lumbar spondylolisthesis. 5. Lumbar radiculopathy. POSTOPERATIVE DIAGNOSES: 1. Lumbar degenerative disk disease, L3-4, L4-5, and L5-S1. 2. Lumbar spondylosis. 3. Lumbar spinal stenosis. 4. Lumbar spondylolisthesis. 5. Lumbar radiculopathy. PROCEDURES PERFORMED: 1. Caudal epidural steroid injection. 2. Fluoroscopic guidance for needle placement. 3. Local with oral Valium for sedation. SCREENING QUESTIONS: The patient answered "no" to all of the following questions: 1. Are you allergic to latex? 2. Do you have a bleeding disorder? 3. Do you have any current local or systemic infections? 4. Are you taking any anti-inflammatories or blood thinners? 5. Do you have any joint replacements, heart valve replacements, or a pacemaker? DESCRIPTION OF PROCEDURE: The patient had the procedure thoroughly explained including all possible risks, benefits and alternatives. Consent was signed in my clinic indicating understanding and willingness to proceed. The patient presented to [facility] [place] and was escorted to the dressing room to disrobe and change into a hospital gown. Preoperative vital signs were taken and stable. The patient reported that Valium was taken prior to the procedure. The patient was brought back to the procedure room and placed in the prone position on the procedure room table. A pillow was placed under the hips in order to flatten the lumbar lordosis. The back was prepped with ChloraPrep and sterilely draped. All personnel in the operating room were dressed in appropriate attire including surgical scrubs, head and shoe covers. This was to ensure sterility while in the treatment room. During the time fluoroscopy was in use, all personnel in the operating room wore lead william with thyroid collars. Sterile technique was used throughout the procedure. The patient was awake and conversant throughout the procedure. There was no evidence of infection at the site of needle insertion. Skeletal landmarks were identified under fluoroscopy for the caudal epidural. Skin was anesthetized with 2% lidocaine with a sterile 27-gauge 1.5 inch needle. Then a 20-gauge Tuohy epidural needle was placed in the epidural space with loss of resistance technique under fluoroscopic guidance. No heme, cerebrospinal fluid, or paresthesias were noted. Isovue-200 contrast dye was injected in 0.2 cubic centimeter increments and seen to outline the epidural space in both AP and lateral views. There was no intravascular flow pattern observed under live fluoroscopy. Then 12 milligrams of Celestone was slowly injected after negative aspiration. The patient tolerated the procedure well. Vital signs were stable during and after the procedure. The staff escorted the patient to the recovery area and the patient was released in stable condition after a brief stay in the recovery room monitored by the nurse. The patient was given both oral and written discharge and follow up instructions with recommendation to follow up given for 2-3 weeks. The patient voiced understanding including understanding of those signs and symptoms that would require emergency care. The patient knows how to contact the office if there are any additional problems or questions in the meantime. PREOPERATIVE PAIN: 2 to 5 out of 10. POSTOPERATIVE PAIN: 0/10. FOLLOWUP: In the Pain Clinic in 3 weeks. DARIEN / SHA /[id number] [id number]
== END 2019-01-10 13:00 | disposition home or self-care (01) ==
LOC: MW.SDS 11:32
PROVIDERS: ATTEND Anesthesiology
DX: M51.37 Other intervertebral disc degeneration, lumbosacral region (principal); M51.16 Intervertebral disc disorders with radiculopathy, lumbar region; M47.26 Other spondylosis with radiculopathy, lumbar region; M48.061 Spinal stenosis, lumbar region without neurogenic claudication; M43.16 Spondylolisthesis, lumbar region
CPT/HCPCS: 62323; J0702

== ENCOUNTER 2019-03-26 10:51 | Day surgery (SDC) | payer MEDICARE, OTHER ==
[2019-03-26] MEDS ORDERED: Iopamidol 200-M 10 ML vial ITHECAL ONE (12:00)
[2019-03-26] MEDS ORDERED: Betamethasone Acetate/Betamethasone Sod Phosphate 30 MG/5 ML MDV EPIDUR ONE (12:00)
[2019-03-26] MEDS ORDERED: Ropivacaine 0.5% 5 MG/ML 30 ML SDV INJECT ONE (12:00)
[2019-03-26] MEDS ORDERED: Lidocaine 2% 5 ML SDV INJECT ONE (12:00)
--- NOTE | 2019-03-26 20:17 | OR ---
SURGEON: Elly Sherwood D.O. DATE OF PROCEDURE: 03/26/2019 PRIMARY SURGEON: Elly Sherwood D.O. CHILD DEVELOPMENT DIRECTOR: OR staff present: 1. Jorden Montenegro. 2. Consuelo Carter. 3. Jayce Lemus. 4. RT Rani. PREOPERATIVE DIAGNOSES: 1. L3-4,L4-5 L5-S1 degenerative disk disease. 2. L5-S1 left lowe extremity radiculopathy 3. L5-S1 neuroforaminal stenosis. 4. L5-S1 spondylolisthesis. 5.increased BMI POSTOPERATIVE DIAGNOSES: same PROCEDURE PERFORMED: 1. Left S1 transforaminal epidural steroid injection. 2. Fluoroscopic guidance for needle placement. 3. Local with oral Valium for sedation. SCREENING QUESTIONS: The patient answered "no" to all of the following questions: 1. Are you allergic to iodine, Betadine or latex? 2. Do you have a bleeding disorder? 3. Do you have any joint replacements, heart valve replacements, or a pacemaker? 4. Are you allergic to anti-inflammatories or blood thinners? 5. Do you have any current local or systemic infections? DESCRIPTION OF PROCEDURE: The patient had the procedure thoroughly explained including risks, benefits and alternatives. Consent was signed in my clinic indicating understanding and willingness to proceed. The patient presented to [facility] [place] where the patient was escorted to the dressing room to disrobe and change into a hospital gown. Preoperative vital signs were taken and stable. The patient reported that Valium was taken prior to the procedure. The patient was brought to the procedure room and placed in the prone position on the table. A pillow was placed under the abdomen in order to flatten the lumbar lordosis. The back was prepped with ChloraPrep and sterilely draped. All personnel in the operating room were dressed in appropriate attire including surgical scrubs, head and shoe covers. This was to ensure sterility while in the treatment room. During the time fluoroscopy was in use, all personnel in the operating room wore lead william with thyroid collars. Sterile technique was used during the procedure. The fluoroscope was placed for the S1 transforaminal epidural steroid injection. There was no sign of infection at the skin site for needle insertion. The skin was anesthetized with 2% lidocaine with a 27 gauge 1-1/2 inch needle. Then a 22 gauge 3-1/2 inch spinal needle, advanced to the S1. Under direct fluoroscopic guidance needle position was verified in three views; AP, oblique and lateral, with 0.2 cubic centimeters increments of Isovue-200 dye. No intravascular flow pattern was observed under live fluoroscopy. Then 12 milligrams of Celestone and local was slowly injected after negative aspiration of heme, cerebrospinal fluid and no paresthesias were noted. The needle was cleared prior to removal from the skin. No adverse reactions were noted. The patient was brought to the recovery room awake and in good condition by my staff. The patient was monitored and discharge instructions were given after a brief stay in the recovery area. Both oral and written discharge and follow up instructions were given. The patient will follow up in the clinic in 3-4 weeks post procedure to evaluate the efficacy. The patient verbalized understanding including understanding of those signs and symptoms that would require emergency care and knows how to contact the office if there are any problems or questions in the meantime. PREOPERATIVE PAIN: 7/10. POSTOPERATIVE PAIN: 3/10. FOLLOWUP: Follow up in the Pain Clinic in 3 weeks. DARIEN / SHA /[id number] RANDI
== END 2019-03-26 13:20 | disposition home or self-care (01) ==
LOC: MW.SDS 10:51
PROVIDERS: ATTEND Anesthesiology
DX: M51.17 Intervertebral disc disorders with radiculopathy, lumbosacral region (principal); M51.36 Other intervertebral disc degeneration, lumbar region; M48.07 Spinal stenosis, lumbosacral region; M43.17 Spondylolisthesis, lumbosacral region; M40.56 Lordosis, unspecified, lumbar region; M46.1 Sacroiliitis, not elsewhere classified; E78.5 Hyperlipidemia, unspecified; I10 Essential (primary) hypertension; E66.01 Morbid (severe) obesity due to excess calories; Z68.41 Body mass index [BMI] 40.0-44.9, adult; Z88.8 Allergy status to other drugs, medicaments and biological substances; Z79.899 Other long term (current) drug therapy; Z79.82 Long term (current) use of aspirin; Z79.84 Long term (current) use of oral hypoglycemic drugs
CPT/HCPCS: 64483; J0702; 62323

== ENCOUNTER 2024-11-02 20:29 | Emergency (ER) | payer MEDICARE, OTHER ==
[2024-11-02 20:42] LABS: APPEARANCE,URINE SLT CLOUDY; GLUCOSE,URINE NEGATIVE (NEGATIVE); OCCULT BLOOD,URINE LARGE (NEGATIVE)
[2024-11-02 20:49] VITALS: BP 141/91; PULSE 76
[2024-11-02 20:53] LABS: EPITHELIAL CELLS,URINE OCCASIONAL (NONE-FEW)
== END 2024-11-02 21:13 | disposition home or self-care (01) ==
LOC: MW.ED 20:29
DX: N39.0 Urinary tract infection, site not specified (principal); I10 Essential (primary) hypertension; E78.00 Pure hypercholesterolemia, unspecified; K21.9 Gastro-esophageal reflux disease without esophagitis; E66.9 Obesity, unspecified; Z79.899 Other long term (current) drug therapy; Z79.84 Long term (current) use of oral hypoglycemic drugs; Z79.82 Long term (current) use of aspirin; Z88.8 Allergy status to other drugs, medicaments and biological substances; Z75.3 Unavailability and inaccessibility of health-care facilities; Z68.35 Body mass index [BMI] 35.0-35.9, adult
CPT/HCPCS: 81001; 87086; 99283; A9270; 87088; 87186

== ENCOUNTER 2024-11-04 20:45 | Inpatient (IN) | payer MEDICARE, OTHER ==
[2024-11-04] MEDS ORDERED: Sodium Chloride 0.9% 2.5 ML Syringe FLUSH PRN (21:30)
[2024-11-04] MEDS ORDERED: Sodium Chloride 0.9% 10 ML Syringe FLUSH PRN (21:30)
[2024-11-04 21:43] LABS: MEAN PLATELET VOLUME 8.9 fL (9.4-12.4); NRBC ABSOLUTE 0.00 K/uL (0.00-0.02); NRBC PERCENT 0.0 /100WBC (0.0-0.2); PLATELET COUNT,PLT 174 K/uL (150-400); RED BLOOD CELL COUNT 4.43 M/uL (4.52-5.90); WHITE BLOOD CELL COUNT,WBC 26.89 K/uL (3.9-11.3)
[2024-11-04 22:09] LABS: A/G RATIO 0.8 (0.9-1.6); ALANINE AMINOTRANSFERASE,ALT 18.0 IU/L (14-63); ASPARTATE AMNIOTRANSFERASE,AST 15.0 IU/L (15-37); BILIRUBIN TOTAL 1.3 mg/dL (0.2-1.0); BLOOD UREA NITROGEN,BUN 21.0 mg/dL (7.0-18.0); CARBON DIOXIDE,CO2 23.0 mmol/L (21.0-32.0); CHLORIDE,CL 95.0 mmol/L (98-107); CREATININE 1.1 mg/dL (0.8-1.3); EST CRCL DRUG DOSING (CG) 59.59 mL/min; GLUCOSE RANDOM 124.0 mg/dL (74-106); POTASSIUM,K 3.2 mmol/L (3.5-5.1); PROTEIN TOTAL,TP 6.5 g/dL (6.4-8.2); SODIUM,NA 128.0 mmol/L (136-148)
[2024-11-04 22:10] LABS: ESTIMATED GFR 72.0 mL/min (>60)
[2024-11-04 22:42] LABS: LYMPHOCYTES ABSOLUTE MAN 0.81 K/uL (1.00-4.80); LYMPHOCYTES PERCENT MAN 3 % (24-44); MONOCYTES ABSOLUTE MAN 1.08 K/uL (0.00-0.80); MONOCYTES PERCENT MAN 4 % (0-8); SEG NEUTROPHILS ABSOLUTE MAN 25.01 K/uL (1.80-7.70); SEG NEUTROPHILS PERCENT MAN 93 % (41-71)
[2024-11-04] MEDS: Aztreonam 1 GM in Water For Injection, Sterile 10 ML IVPUSH ONE (23:00)
[2024-11-04 23:10] LABS: APPEARANCE,URINE CLEAR; GLUCOSE,URINE NEGATIVE (NEGATIVE); OCCULT BLOOD,URINE NEGATIVE (NEGATIVE)
[2024-11-04 23:16] LABS: LACTIC ACID 0.9 mmol/L (0.4-2.0)
[2024-11-04 23:24] LABS: EPITHELIAL CELLS,URINE RARE (NONE-FEW)
[2024-11-04] MEDS: VANCOmycin 2 GM/400 ML 400 ML IV ONE (23:27)
[2024-11-05] MEDS ORDERED: Ondansetron 4 MG/2 ML SDV IVPUSH PRN (01:20)
[2024-11-05] MEDS: cefTRIAXone 1 GM in Water For Injection, Sterile 10 ML IVPUSH SCH (01:37)
[2024-11-05] MEDS ORDERED: Sodium Chloride 0.9% 10 ML Syringe FLUSH PRN (07:48)
[2024-11-05] MEDS ORDERED: Ondansetron 4 MG Tab.DIS PO PRN (07:48)
[2024-11-05] MEDS ORDERED: Sodium Chloride 0.9% 2.5 ML Syringe FLUSH PRN (07:48)
[2024-11-05 11:06] LABS: BASOPHILS ABSOLUTE AUTO 0.02 K/uL (0.00-0.20); BASOPHILS PERCENT AUTO 0.1 % (0.0-1.0); EOSINOPHILS ABSOLUTE AUTO 0.06 K/uL (0.00-0.45); EOSINOPHILS PERCENT AUTO 0.4 % (0.0-6.0); IMMATURE GRAN ABSOLUTE AUTO 0.13 K/uL (0.00-0.05); IMMATURE GRAN PERCENT AUTO 0.8 % (0.0-0.4); LYMPHOCYTES ABSOLUTE AUTO 0.34 K/uL (1.00-4.80); LYMPHOCYTES PERCENT AUTO 2.0 % (24.0-44.0); MEAN PLATELET VOLUME 8.9 fL (9.4-12.4); MONOCYTES ABSOLUTE AUTO 0.88 K/uL (0.00-0.80); MONOCYTES PERCENT AUTO 5.2 % (0.0-8.0); NEUTROPHILS ABSOLUTE AUTO 15.40 K/uL (1.80-7.70); NEUTROPHILS PERCENT AUTO 91.5 % (41.0-71.0); NRBC ABSOLUTE 0.00 K/uL (0.00-0.02); NRBC PERCENT 0.0 /100WBC (0.0-0.2); PLATELET COUNT,PLT 153 K/uL (150-400); RED BLOOD CELL COUNT 4.32 M/uL (4.52-5.90); WHITE BLOOD CELL COUNT,WBC 16.83 K/uL (3.9-11.3)
[2024-11-05] MEDS: Furosemide 40 MG/4 ML VIAL IVPUSH ONE (11:56)
[2024-11-05 11:58] LABS: BLOOD UREA NITROGEN,BUN 17.0 mg/dL (7.0-18.0); CARBON DIOXIDE,CO2 24.2 mmol/L (21.0-32.0); CHLORIDE,CL 101.0 mmol/L (98-107); CREATININE 0.8 mg/dL (0.8-1.3); EST CRCL DRUG DOSING (CG) 81.94 mL/min; GLUCOSE RANDOM 130.0 mg/dL (74-106); POTASSIUM,K 3.1 mmol/L (3.5-5.1); SODIUM,NA 135.0 mmol/L (136-148)
[2024-11-05 12:03] LABS: ESTIMATED GFR 95.0 mL/min (>60)
[2024-11-05] MEDS: Phosphorus #1 250 MG Tab PO SCH (20:20)
[2024-11-06 05:47] LABS: BASOPHILS ABSOLUTE AUTO 0.02 K/uL (0.00-0.20); BASOPHILS PERCENT AUTO 0.2 % (0.0-1.0); EOSINOPHILS ABSOLUTE AUTO 0.05 K/uL (0.00-0.45); EOSINOPHILS PERCENT AUTO 0.6 % (0.0-6.0); IMMATURE GRAN ABSOLUTE AUTO 0.06 K/uL (0.00-0.05); IMMATURE GRAN PERCENT AUTO 0.7 % (0.0-0.4); LYMPHOCYTES ABSOLUTE AUTO 0.52 K/uL (1.00-4.80); LYMPHOCYTES PERCENT AUTO 6.0 % (24.0-44.0); MEAN PLATELET VOLUME 9.0 fL (9.4-12.4); MONOCYTES ABSOLUTE AUTO 0.64 K/uL (0.00-0.80); MONOCYTES PERCENT AUTO 7.3 % (0.0-8.0); NEUTROPHILS ABSOLUTE AUTO 7.42 K/uL (1.80-7.70); NEUTROPHILS PERCENT AUTO 85.2 % (41.0-71.0); NRBC ABSOLUTE 0.00 K/uL (0.00-0.02); NRBC PERCENT 0.0 /100WBC (0.0-0.2); PLATELET COUNT,PLT 171 K/uL (150-400); RED BLOOD CELL COUNT 4.41 M/uL (4.52-5.90); WHITE BLOOD CELL COUNT,WBC 8.71 K/uL (3.9-11.3)
[2024-11-06 06:38] LABS: A/G RATIO 0.7 (0.9-1.6); ALANINE AMINOTRANSFERASE,ALT 27.0 IU/L (14-63); ASPARTATE AMNIOTRANSFERASE,AST 25.0 IU/L (15-37); BILIRUBIN TOTAL 0.7 mg/dL (0.2-1.0); BLOOD UREA NITROGEN,BUN 12.0 mg/dL (7.0-18.0); CARBON DIOXIDE,CO2 25.4 mmol/L (21.0-32.0); CHLORIDE,CL 103.0 mmol/L (98-107); CREATININE 0.9 mg/dL (0.8-1.3); EST CRCL DRUG DOSING (CG) 72.83 mL/min; GLUCOSE RANDOM 115.0 mg/dL (74-106); POTASSIUM,K 3.0 mmol/L (3.5-5.1); PROTEIN TOTAL,TP 6.1 g/dL (6.4-8.2); SODIUM,NA 134.0 mmol/L (136-148)
[2024-11-06 06:54] LABS: ESTIMATED GFR 91.0 mL/min (>60)
[2024-11-06] MEDS: Potassium Chloride 20 MEQ Tab.ER PO ONE (08:37)
[2024-11-06] MEDS: Furosemide 20 MG/2 ML VIAL IVPUSH ONE (08:40)
[2024-11-07 05:49] LABS: BASOPHILS ABSOLUTE AUTO 0.04 K/uL (0.00-0.20); BASOPHILS PERCENT AUTO 0.5 % (0.0-1.0); EOSINOPHILS ABSOLUTE AUTO 0.22 K/uL (0.00-0.45); EOSINOPHILS PERCENT AUTO 3.0 % (0.0-6.0); IMMATURE GRAN ABSOLUTE AUTO 0.06 K/uL (0.00-0.05); IMMATURE GRAN PERCENT AUTO 0.8 % (0.0-0.4); LYMPHOCYTES ABSOLUTE AUTO 0.82 K/uL (1.00-4.80); LYMPHOCYTES PERCENT AUTO 11.0 % (24.0-44.0); MEAN PLATELET VOLUME 8.8 fL (9.4-12.4); MONOCYTES ABSOLUTE AUTO 0.91 K/uL (0.00-0.80); MONOCYTES PERCENT AUTO 12.2 % (0.0-8.0); NEUTROPHILS ABSOLUTE AUTO 5.40 K/uL (1.80-7.70); NEUTROPHILS PERCENT AUTO 72.5 % (41.0-71.0); NRBC ABSOLUTE 0.00 K/uL (0.00-0.02); NRBC PERCENT 0.0 /100WBC (0.0-0.2); PLATELET COUNT,PLT 196 K/uL (150-400); RED BLOOD CELL COUNT 4.38 M/uL (4.52-5.90); WHITE BLOOD CELL COUNT,WBC 7.45 K/uL (3.9-11.3)
[2024-11-07 06:17] LABS: A/G RATIO 0.7 (0.9-1.6); ALANINE AMINOTRANSFERASE,ALT 51.0 IU/L (14-63); ASPARTATE AMNIOTRANSFERASE,AST 39.0 IU/L (15-37); BILIRUBIN TOTAL 0.6 mg/dL (0.2-1.0); BLOOD UREA NITROGEN,BUN 13.0 mg/dL (7.0-18.0); CARBON DIOXIDE,CO2 27.5 mmol/L (21.0-32.0); CHLORIDE,CL 105.0 mmol/L (98-107); CREATININE 0.9 mg/dL (0.8-1.3); EST CRCL DRUG DOSING (CG) 72.83 mL/min; GLUCOSE RANDOM 99.0 mg/dL (74-106); POTASSIUM,K 3.4 mmol/L (3.5-5.1); PROTEIN TOTAL,TP 6.3 g/dL (6.4-8.2); SODIUM,NA 141.0 mmol/L (136-148)
[2024-11-07 06:18] LABS: ESTIMATED GFR 91.0 mL/min (>60)
[2024-11-07] MEDS: Potassium Chloride 20 MEQ Tab.ER PO ONE (09:10)
[2024-11-07 09:40] VITALS: BP 126/84; PULSE 94
== END 2024-11-07 10:09 | disposition home or self-care (01) | DRG 872 ==
LOC: MW.ED 20:45 → MW.MS 11-05 00:44
PROVIDERS: ADMIT Family Medicine; ATTEND Family Medicine
DX: A41.9 Sepsis, unspecified organism (principal); N39.0 Urinary tract infection, site not specified; D72.829 Elevated white blood cell count, unspecified; E78.00 Pure hypercholesterolemia, unspecified; I10 Essential (primary) hypertension; G47.30 Sleep apnea, unspecified; K21.9 Gastro-esophageal reflux disease without esophagitis; M19.90 Unspecified osteoarthritis, unspecified site; E66.9 Obesity, unspecified; Z96.659 Presence of unspecified artificial knee joint; Z68.37 Body mass index [BMI] 37.0-37.9, adult; Z98.890 Other specified postprocedural states; Z88.8 Allergy status to other drugs, medicaments and biological substances; Z79.899 Other long term (current) drug therapy; Z79.84 Long term (current) use of oral hypoglycemic drugs; Z98.49 Cataract extraction status, unspecified eye; Z79.82 Long term (current) use of aspirin
CPT/HCPCS: 36415; 51702; 51798; 80053; 81001; 83605; 84100; 85025; 87040 ×2; 96365; 96375; 99284; J0457; J3375; J7030 ×2; 80048; 83735; 99222; 99232; 99239; A9270-GY; J0692; J0696; J1938